=== PATIENT | male | born 1940 | race Two or more races ===

== ENCOUNTER 2022-01-30 15:57 | Inpatient (IN) | payer BC ==
[~2022-01-30] VITALS: Ht 165.1 cm; Wt 80.6 kg
[2022-01-30 18:09] LABS: Basophils # (auto) 0.1 10 ^3/uL (0-0.2); Hemoglobin 12.6 g/dL (13.5-17.5); Lymphocytes # (auto) 1.4 10 ^3/uL (0.4-5.4); Red Cell Distribution Width 14.6 % (11.8-14.3)
[2022-01-30 18:13] LABS: Basophils % (auto) 1.4 % (0.0-2.0); Eosinophils # (auto) 0.4 10 ^3/uL (0-0.8); Eosinophils % (auto) 4.5 % (0.0-7.0); Hematocrit 37.7 % (41.0-53.0); Lymphocytes % (auto) 17.5 % (10.0-50.0); Mean Corpuscular Hemoglobin 29.7 pg (28.0-32.0); Mean Corpuscular Hgb Conc. 33.3 g/dL (32.0-36.0); Mean Corpuscular Volume 89.2 fL (80.0-100.0); Monocytes # (auto) 0.6 10 ^3/uL (0-1.3); Monocytes % (auto) 7.3 % (0.0-12.0); Neutrophils # (auto) 5.7 10 ^3/uL (1.6-8.6); Neutrophils % (auto) 69.3 % (37.0-80.0); Nucleated Red Blood Cells % 0.1 %; Red Blood Cells 4.23 10^6/uL (4.5-5.90); White Blood Cell 8.2 10^3/uL (4.4-10.8)
[2022-01-30 18:24] LABS: Albumin 3.9 g/dL (3.4-5.0); Calcium 8.9 mg/dL (8.5-10.1); Potassium 4.1 mmol/L (3.5-5.1)
[2022-01-30 18:27] LABS: BUN/Creatinine Ratio 26.7; Bilirubin, Total 1.7 mg/dL (0.2-1.0); Total Protein 6.8 g/dL (6.4-8.2)
[2022-01-30 18:29] LABS: INR 1.01 (0.9-1.15); Partial Thromboplastin Time 22.2 sec (24.6-33.4)
[2022-01-30 20:45] LABS: Urine Bacteria FEW /hpf (None Seen); Urine Blood 1+ /uL (Negative); Urine Specific Gravity 1.023 (1.001-1.035); Urine WBC 37 /hpf (0 - 3)
[2022-01-30] MEDS ORDERED: TEMAZEPAM 15 MG CAP PO PRN (21:15)
[2022-01-30] MEDS ORDERED: ONDANSETRON HCL 4 MG/2 ML VIAL IV PRN (21:15)
[2022-01-30] MEDS ORDERED: ACETAMINOPHEN 325 MG TAB PO PRN (21:15)
[2022-01-30] MEDS: ATORVASTATIN 20 MG TAB PO SCH (21:46)
[2022-01-31 06:13] LABS: Basophils # (auto) 0 10 ^3/uL (0-0.2); Basophils % (auto) 0.6 % (0.0-2.0); Eosinophils # (auto) 0.1 10 ^3/uL (0-0.8); Eosinophils % (auto) 1.2 % (0.0-7.0); Hematocrit 39.4 % (41.0-53.0); Hemoglobin 13.6 g/dL (13.5-17.5); Lymphocytes # (auto) 1.3 10 ^3/uL (0.4-5.4); Lymphocytes % (auto) 14.7 % (10.0-50.0); Mean Corpuscular Hemoglobin 29.2 pg (28.0-32.0); Mean Corpuscular Hgb Conc. 34.5 g/dL (32.0-36.0); Mean Corpuscular Volume 84.6 fL (80.0-100.0); Monocytes # (auto) 0.4 10 ^3/uL (0-1.3); Monocytes % (auto) 4.6 % (0.0-12.0); Neutrophils # (auto) 6.8 10 ^3/uL (1.6-8.6); Neutrophils % (auto) 78.9 % (37.0-80.0); Red Blood Cells 4.66 10^6/uL (4.5-5.90); White Blood Cell 8.6 10^3/uL (4.4-10.8)
[2022-01-31 06:24] LABS: BUN/Creatinine Ratio 15.5; Calcium 8.2 mg/dL (8.5-10.1); Potassium 3.6 mmol/L (3.5-5.1)
[2022-01-31] MEDS ORDERED: TETRACAINE 1% INJ 2 ML VIAL IJ ONE (08:57)
[2022-01-31] MEDS ORDERED: BUPIVACAINE 0.5% P/F INJ 10 ML VIAL ONE (08:58)
[2022-01-31] MEDS ORDERED: MORPHINE SULF PF 5 MG/10 ML VIAL ONE (09:14)
[2022-01-31] MEDS ORDERED: KETOROLAC TROMETH 30 MG/ML 1ML VIAL ONE (09:14)
[2022-01-31] MEDS ORDERED: LIDOCAINE 1%-Mpf/Epinephrine 1:200,000 ONE (09:16)
[2022-01-31] MEDS ORDERED: VANCOMYCIN HCL 1000 MG VL ONE (09:18)
[2022-01-31] MEDS ORDERED: ceFAZolin 1GM/50ML 100 ML IV ONE (09:44)
[2022-01-31] MEDS ORDERED: SODIUM CHLORIDE 0.9% 1,000 ML IV SCH (09:45)
[2022-01-31] MEDS ORDERED: cefTRIAXone 1GM/50ML D5W 50 ML IV ONE (09:45)
[2022-01-31] MEDS: LOSARTAN POTASSIUM 50 MG TAB PO SCH (10:00)
[2022-01-31] MEDS: PANTOPRAZOLE 40 MG TAB PO SCH (10:00)
[2022-01-31] MEDS: ENOXAPARIN SOD 40 MG/0.4 ML SYRINGE SC SCH (10:00)
[2022-01-31] MEDS ORDERED: IOHEXOL 300 MG/ML 100ML BOTTLE IJ ONE (10:09)
[2022-01-31] MEDS ORDERED: TRANEXAMIC ACID 20 ML ONE (10:55)
[2022-01-31] MEDS ORDERED: ONDANSETRON HCL 4 MG/2 ML VIAL IV PRN (11:45)
[2022-01-31] MEDS ORDERED: HYDROmorphone HCL 2 MG/ML VL/or syr IV PRN (11:45)
[2022-01-31] MEDS ORDERED: MORPHINE SULFATE INJ 2 MG/ml SYRG IV PRN (12:30)
[2022-01-31] MEDS: LACTATED RINGER'S 1,000 ML IV SCH ×2 (12:30→22:30)
[2022-01-31] MEDS ORDERED: NITROGLYCERIN 0.4 MG SL TAB SL PRN (12:30)
[2022-01-31 15:00] VITALS: BP 143/83
[2022-01-31 16:00] VITALS: BP 128/66
[2022-01-31 17:16] VITALS: BP 128/59
[2022-01-31 18:45] VITALS: BP 143/83
[2022-01-31] MEDS ORDERED: ATO40T PO (18:45)
[2022-01-31] MEDS ORDERED: LOSA-69 PO (18:45)
[2022-01-31] MEDS ORDERED: ATOR20TA50 PO (18:45)
[2022-01-31] MEDS ORDERED: TRAZ50TA2 PO (18:45)
[2022-01-31 21:40] VITALS: BP 168/83
[2022-01-31] MEDS: ATORVASTATIN 20 MG TAB PO SCH (21:45)
[2022-01-31] MEDS: SODIUM CHLOR 0.9% PF (SALINE LOCK) 10ML VIAL/SYR IV SCH ×2 (21:45→21:52)
[2022-01-31] MEDS: cloNIDine HCL 0.1 MG TAB PO PRN (21:46)
[2022-01-31] MEDS: HYDROcodone-ACET 5/325MG TAB PO PRN (21:46)
[2022-01-31] MEDS: ceFAZolin 1GM/50ML 50 ML IV SCH (21:51)
[2022-02-01] MEDS: ceFAZolin 1GM/50ML 50 ML IV SCH (00:30)
[2022-02-01] MEDS ORDERED: ceFAZolin 1GM/50ML 50 ML IV SCH (04:00)
[2022-02-01 05:09] VITALS: BP 131/79
[2022-02-01] MEDS: SODIUM CHLOR 0.9% PF (SALINE LOCK) 10ML VIAL/SYR IV SCH ×3 (06:08→20:22)
[2022-02-01 06:50] LABS: BUN/Creatinine Ratio 28.1; Calcium 7.9 mg/dL (8.5-10.1); Potassium 4.2 mmol/L (3.5-5.1)
[2022-02-01 07:09] LABS: Basophils # (auto) 0 10 ^3/uL (0-0.2); Basophils % (auto) 0.3 % (0.0-2.0); Eosinophils # (auto) 0.1 10 ^3/uL (0-0.8); Hematocrit 31.4 % (41.0-53.0); Hemoglobin 10.9 g/dL (13.5-17.5); Lymphocytes # (auto) 0.6 10 ^3/uL (0.4-5.4); Lymphocytes % (auto) 6.3 % (10.0-50.0); Mean Corpuscular Hemoglobin 30.4 pg (28.0-32.0); Mean Corpuscular Hgb Conc. 34.7 g/dL (32.0-36.0); Mean Corpuscular Volume 87.7 fL (80.0-100.0); Monocytes # (auto) 0.5 10 ^3/uL (0-1.3); Monocytes % (auto) 5.9 % (0.0-12.0); Neutrophils # (auto) 8.1 10 ^3/uL (1.6-8.6); Neutrophils % (auto) 86.5 % (37.0-80.0); Red Blood Cells 3.59 10^6/uL (4.5-5.90); Red Cell Distribution Width 14.1 % (11.8-14.3); White Blood Cell 9.3 10^3/uL (4.4-10.8)
[2022-02-01 08:00] VITALS: BP 161/75
[2022-02-01 09:00] VITALS: BP 161/75
[2022-02-01] MEDS ORDERED: cefTRIAXone 1GM/50ML D5W 50 ML IV SCH (09:00)
[2022-02-01] MEDS: HYDROcodone-ACET 5/325MG TAB PO PRN (09:14)
[2022-02-01] MEDS: LOSARTAN POTASSIUM 50 MG TAB PO SCH (10:21)
[2022-02-01] MEDS: PANTOPRAZOLE 40 MG TAB PO SCH (10:22)
[2022-02-01] MEDS: ENOXAPARIN SOD 40 MG/0.4 ML SYRINGE SC SCH (10:22)
[2022-02-01] MEDS: MORPHINE SULFATE INJ 2 MG/ml SYRG IV PRN ×3 (10:23→18:41)
[2022-02-01] MEDS: cloNIDine HCL 0.1 MG TAB PO PRN ×2 (10:24→18:44)
[2022-02-01] MEDS: LACTATED RINGER'S 1,000 ML IV SCH ×2 (11:24→18:10)
[2022-02-01 13:00] VITALS: BP 123/57
[2022-02-01] MEDS ORDERED: POLYETHYLENE GLYCOL 17 GM PWDR PO ONE (13:00)
[2022-02-01] MEDS ORDERED: IOHEXOL 300 MG/ML 100ML BOTTLE IJ ONE (13:55)
[2022-02-01 17:00] VITALS: BP 179/72
[2022-02-01] MEDS ORDERED: hydrALAZINE HCL 20 MG/ML VL IV ONE (19:00)
[2022-02-01] MEDS ORDERED: HYDROcodone-ACET 5/325MG TAB PO PRN (19:00)
[2022-02-01] MEDS ORDERED: levoFLOXacin 500 MG TAB PO ONE (19:00)
[2022-02-01] MEDS ORDERED: amLODIPine BESYLATE 5 MG TAB PO ONE (19:00)
[2022-02-01] MEDS ORDERED: hydrALAZINE HCL 20 MG/ML VL IV PRN (19:00)
[2022-02-01] MEDS: ATORVASTATIN 20 MG TAB PO SCH (20:22)
[2022-02-01 22:00] VITALS: BP 163/64
[2022-02-02] MEDS ORDERED: amLODIPine BESYLATE 5 MG TAB PO SCH (10:00)
[2022-02-02] MEDS ORDERED: levoFLOXacin 500 MG TAB PO SCH (10:00)
[2022-02-02] MEDS ORDERED: POLYETHYLENE GLYCOL 17 GM PWDR PO SCH (10:00)
== END 2022-02-02 00:23 | DRG 522 ==
LOC: ER 15:57 → OVERFLOW 21:14 → CENTRAL 01-31 14:54
PROVIDERS: ADMIT Nurse Practitioner; ATTEND Internal Medicine
PROC: 0SRS0J9 Replacement of Left Hip Joint, Femoral Surface with Synthetic Substitute, Cemented, Open Approach (ICD-10-PCS; principal; 2022-01-31 10:14)
DX: S72.002A Fracture of unspecified part of neck of left femur, initial encounter for closed fracture (principal); S42.202A Unspecified fracture of upper end of left humerus, initial encounter for closed fracture; N39.0 Urinary tract infection, site not specified; I10 Essential (primary) hypertension; E66.9 Obesity, unspecified; Z20.822 Contact with and (suspected) exposure to COVID-19; E78.5 Hyperlipidemia, unspecified; W18.39XA Other fall on same level, initial encounter; Z68.30 Body mass index [BMI] 30.0-30.9, adult; Z91.81 History of falling; Y93.89 Activity, other specified; Y92.89 Other specified places as the place of occurrence of the external cause; Y99.8 Other external cause status
CPT/HCPCS: 36415; 71045; 71260; 72170; 80048; 80053; 81001; 85025; 85610; 85730; 86850; 86900; 86901; 87086; 93005; 96374; 97163; G0378; J0690; J0696; J1885; J3490